=== PATIENT | male | born 1940 | race Caucasian/White ===

== ENCOUNTER 2021-03-28 12:20 | Outpatient (REF) | payer MEDICARE, SELFPAY ==
--- NOTE | ~2021-03-28 | XR_ITS ---
EXAMINATION: XR FOOT, RIGHT CLINICAL INFORMATION: Pain COMPARISON: None TECHNIQUE: AP, lateral, and oblique views of the right foot. FINDINGS: There is a transverse nondisplaced fracture of the proximal phalanx of the fifth toe. There is adjacent soft tissue swelling. No other fracture is seen. Joint spaces are normal. There are small calcaneal spurs. XR/XR foot RT min 3V IMPRESSION: Nondisplaced fracture of the proximal phalanx of the fifth toe.
== END 2021-03-28 12:21 | disposition home or self-care (01) ==
LOC: HO.HMGCX 12:20
PROVIDERS: PCP Internal Medicine; Visit Provider Hospitalist
DX: Z13.89 Encounter for screening for other disorder (principal)
CPT/HCPCS: 73630